=== PATIENT | female | born 1950 | race Caucasian/White ===

== ENCOUNTER 2022-02-10 07:39 | Outpatient (CLI) | payer BC | END 2022-02-10 07:40 | disposition home or self-care (01) | LOC: NM 07:39 | PROVIDERS: ATTEND Otolaryngology Plastic Surgery within the Head & Neck | DX: E21.0 Primary hyperparathyroidism (principal) | CPT/HCPCS: 78072; A9500 ==

== ENCOUNTER 2022-03-10 09:05 | Outpatient (CLI) | payer BC ==
[2022-03-10] MEDS ORDERED: Iopamidol 370 76% 100 ML VIAL ONE (15:18)
== END 2022-03-10 09:06 | disposition home or self-care (01) ==
LOC: CT 09:05
PROVIDERS: ATTEND Otolaryngology Plastic Surgery within the Head & Neck
DX: E21.0 Primary hyperparathyroidism (principal); E07.89 Other specified disorders of thyroid
CPT/HCPCS: 70492; 82565; Q9967

== ENCOUNTER 2023-12-25 15:46 | Outpatient (CLI) | payer BC | END 2023-12-25 15:47 | disposition home or self-care (01) | LOC: SCSRAD 15:46 | PROVIDERS: ATTEND Nurse Practitioner Family | DX: M79.672 Pain in left foot (principal) ==